=== PATIENT | male | born 1965 | race African-American/Black ===

== ENCOUNTER 2017-07-17 09:22 | Day surgery (SDC) | payer BC ==
[2017-07-10 17:40] VITALS: BMI 29.1
[2017-07-17 11:36] VITALS: TEMP 98.2
[2017-07-17 12:12] VITALS: BP 120/46; PULSE 74
== END 2017-07-17 12:14 | disposition home or self-care (01) ==
LOC: FASU-ENDO 09:22
PROVIDERS: ATTEND Internal Medicine Gastroenterology
PROC: 0DJD8ZZ Inspection of Lower Intestinal Tract, Via Natural or Artificial Opening Endoscopic (ICD-10-PCS; principal; 2017-07-17 11:03)
DX: Z12.11 Encounter for screening for malignant neoplasm of colon (principal)